=== PATIENT | male | born 1945 | race Caucasian/White ===

== ENCOUNTER → 2017-03-18 | Outpatient (CLI) | payer OTHER ==
[~2017-03-18] MED LIST: ALBUMIN (HUMAN100 M1 IVPB; ALBUTEROL2.5 MG/31 INH; APAP650 PER TUBE; ARANESP 4040 MCG/0.4 SUBQ; ASPIR 8181 MG PO; ATIVAN0.5 MG PER TUBE; ATIVAN1 MG PER TUBE; ATORVASTATIN CA80 MG PER TUBE; BUMETANIDE0.25 MG/1 IV; CALCIUM 500 +1 EAC5 PER TUBE; CALCIUM 600 +1 EAC1 PO; CARAFATE 1 GM TA1 G1 PER TUBE; CEFDINIR300 MG PO; COLACE100 MG PO; COREG3.125 MG PER TUBE; COUMADIN 1MG TAB1 M1 PO; CRESTOR10 MG PO; CYMBALTA60 MG PO; EPOGEN10000 UNIT SUBQ; FENTANYL C100 MCG/2 IV PUSH; FISH OIL 1,001000 M2 PO; FLAGYL500 MG PO; FLOMAX0.4 MG PO; GABAPENTIN 100100 MG PO; HEPARIN 1,1000 UNIT/ IV PUSH; HYDRALAZINE 10M10 MG PO; HYDROCODONE-AP1 EAC6 PER TUBE; HYDROCODONE-AP1 EAC6 PO; IPRAT-ALBUT 0.5-3 ML INH; IRON325 PO; K-PHOS NEUTRAL250 MG PO; KLOR-CON 1010 MEQ PER TUBE; KONSYL6 GM PER TUBE; LANTISEPTIC OI113 GM TOP; LASIX 40 MG TAB40 M2 PO; LEVOTHYROXIN0.088 MG PO; LIPITOR 20 MG T20 M1 PO; LIPITOR40 MG PO; MAGOX 400400 MG PER TUBE; MAGOX 400400 MG PO; MEROPENEM 1 GM V1 GM IVPB; MIDODRINE HCL10 MG PO; MIRALAX17 GM PO; MIRAPEX 0.250.25 M1 PER TUBE; MULTI COMPLETE1 EAC1 PER TUBE; MYCOPHENOLATE PER TUBE; MYFORTIC360 MG PO; NEPRO CARB STE237 ML PER TUBE; NORMAL SALINE FL5 ML PER TUBE; NOVOLIN N100 UNIT/3 SQ; NOVOLIN R100 UNIT/1 SUBQ; OMEPRAZOLE40 MG PER TUBE; OMEPRAZOLE40 MG PO; ONDANSETRON HCL4 M2 IV PUSH; ONDANSETRON HCL4 M2 PO; ONE DAILY1 EAC2 PO; PANTOPRAZOLE SO40 M1 PO; PLAVIX 75 MG TA75 M1 PO; PROBIOTIC1 EAC1 PER TUBE; PROTONIX40 M1 PO; RAPAMUNE0.5 MG PER TUBE; RAPAMUNE0.5 MG PO; RAPAMUNE1 MG PER TUBE; SECURA PROTECTI50 GM TOP; SEROQUEL 25 MG25 M1 PER TUBE; SERTRALINE HCL50 MG PO; SSD CREAM 1% 5050 GM TOP; SYNTHROID88 MCG PER TUBE; THERAGRAN-M PR1 EAC1 PO; TRAMADOL 50 MG50 MG PER TUBE; TRAMADOL 50 MG50 MG PO; TUMS PO; TYLENOL325 MG PO; VANCOMYCIN HCL1 GM IV; VENOFER200 MG/10 IV PUSH; VITAMIN D1000 UNI1 PER TUBE; VITAMIN D2000 UNIT PO; VITAMINC500 PER TUBE; VITAMINC500 PO; VITCB500GO PER TUBE; ZAROXOLYN 5MG TA5 MG PO; ZOLOFT50 MG PER TUBE; ZYVOX600 MG/300 IVPB; [UNRECOGNIZED DRUG - OTHER] INH
[2017-03-18 08:31] VITALS: BP 188/90
[2017-03-18 09:23] LABS: PROTIME 10.5 Seconds (9.3-11.4)
== END | disposition home or self-care (01) ==
LOC: SPEC 03-17 06:32
PROVIDERS: Radiology Diagnostic Radiology
DX: Z49.01 Encounter for fitting and adjustment of extracorporeal dialysis catheter (principal); N18.9 Chronic kidney disease, unspecified; E11.22 Type 2 diabetes mellitus with diabetic chronic kidney disease; E11.621 Type 2 diabetes mellitus with foot ulcer; Z98.890 Other specified postprocedural states; Z87.891 Personal history of nicotine dependence; Z88.0 Allergy status to penicillin; Z88.6 Allergy status to analgesic agent; Z79.899 Other long term (current) drug therapy; Z89.611 Acquired absence of right leg above knee

== ENCOUNTER → 2017-03-24 | Day surgery (SDC) | payer OTHER ==
[~2017-03-24] VITALS: Ht 175.3 cm; Wt 99.8 kg
--- NOTE | ~2017-03-24 | EKG ---
[address] [address] ELECTROCARDIOGRAM REPORT Name: ANJELRIANA Rivera Room #: 150[address] [place] [address]#: [id number] Admission: 03/24/17 Attend Phys: Alfredo Schmitt MD, F Discharge: Date of : 45 Report #: [id number] THIS REPORT FOR: //name// [facility] Test Date: 2017-03-24 Test Time: 07:03:54 Pat Name: RIANA HOBBS Department: Room: [facility] Gender: M Load Dropper: ELIZABETH : 1945 Requested By: Alfredo Schmitt Order Number: [id number] MD: Yousif Perdomo Measurements Intervals Purcell Rate: 94 P: 56 PA: 172 QRS: 142 QRSD: 92 T: QT: 424 QTc: 531 Interpretive Statements Sinus rhythm Low voltage, extremity and precordial leads Probable right ventricular hypertrophy No previous ECG available for comparison Electronically Signed On 03-24-2017 20:18:08 CDT by Yousif Perdomo [email or web address] <ELECTRONICALLY SIGNED> By: Yousif Perdomo MD 03/24/172017 2 2 Yousif Perdomo MD /JOHAN
--- NOTE | ~2017-03-24 | O ---
[facility] [place] [address] OPERATIVE REPORT Name: RIANA HOBBS Room #: 150-1 [facility]..#: [id number] Admission: 03/24/17 Attend Phys: Alfredo Schmitt MD, F Discharge: Date of : 45 Report #: [id number] THIS REPORT FOR: //name// CC: Oliver Schmitt DATE OF SERVICE: 03/24/2017 PREOPERATIVE DIAGNOSES: 1. Respiratory failure. 2. Malnutrition. 3. Dysphagia. 4. History of pulmonary embolism. 5. History of cardiac transplantation. 6. Previous gastrointestinal bleed. 7. Atrial fibrillation. 8. Cardiomyopathy. POSTOPERATIVE DIAGNOSES: 1. Respiratory failure. 2. Malnutrition. 3. Dysphagia. 4. History of pulmonary embolism. 5. History of cardiac transplantation. 6. Previous gastrointestinal bleed. 7. Atrial fibrillation. 8. Cardiomyopathy. PROCEDURE: Placement of size 8 Shiley XLT tracheostomy. ANESTHESIA: General endotracheal anesthesia and local anesthetic. ESTIMATED BLOOD LOSS: 25 mL. SPECIMEN: None. COMPLICATIONS: None appreciated. INDICATIONS FOR PROCEDURE: This is a 72-year-old male patient who was transferred to [facility] from [facility]. Over 2 months ago, the patient had been admitted to [facility] with the right lower extremity diabetic foot wound. 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 While he was at the facility, he developed a GI bleed and was transferred back to [facility] where he underwent a repeat EGD. The patient was then transferred to [facility]. I was involved with his care for placement of the PEG tube. After his PEG tube placement, he required mechanical ventilation as he had been BiPAP dependent. He has been unable to be weaned off the ventilator and presents now for tracheostomy placement. DESCRIPTION OF PROCEDURE IN DETAIL: After the risks, benefits, and expectations of the operation were discussed in detail with the patient's family, informed consent was obtained. The patient was identified in the preoperative holding area. He was given IV antibiotics in line with SCIP metrics. The patient was then taken to the operating room and he was placed in the supine position. SCDs were placed on the patient's lower extremity. Pneumatic compression was initiated. The patient was then given general anesthesia through his indwelling endotracheal tube. The patient was then placed in reverse Trendelenburg position with his neck extended. His neck was prepped and draped in the standard sterile fashion. A time-out was performed to identify the correct patient and procedure. Local anesthetic was infiltrated into the skin and subcutaneous tissue transversely between the strap muscles 1 fingerbreadth above the sternal notch. A sharp #15 blade scalpel was used to make an incision through the skin. Electrocautery was used to dissect through the subcutaneous tissue and through the platysma muscle. The underlying strap muscles were then divided in the midline. Retractors were placed. The thyroid was encountered and cauterized for hemostasis. The trachea was then dissected free with electrocautery. Bleeding points were made hemostatic with electrocautery. The second tracheal ring was identified. The trachea was scored both above and below the second tracheal ring. The cuff was then inflated. After testing the balloon on the tracheostomy, the trachea was incised with a sharp #11 blade scalpel. The anterior portion of the second tracheal ring was then divided and excised. The endotracheal tube cuff was deflated and the tube was slowly withdrawn. When the tube was proximal to the tracheotomy, a trach stitching machine operator was placed and the tracheostomy was placed within the defect. This did not hold the seal. A jagged piece of cartilage was present and this was excised. The endotracheal tube was readvanced and the patient's oxygen saturations were brought back up to a reasonable level in the upper 90s. The cuff was then deflated and the tube pulled back once again. The Shiley XLT size 8 tracheostomy was then placed within the defect and the balloon was inflated with an intact cuff. The inner cannula was placed and the ventilator was connected with end tidal CO2 return. The tracheostomy was then secured to the patient's skin with 2-0 nylon sutures on each wing of the tracheostomy. Surgicel was placed within the subcutaneous space. A tracheostomy strap was then placed to further secure the tube. The patient tolerated the procedure well. He was [address] [address] OPERATIVE REPORT Name: RIANA HOBBS Room #: 150-1 [facility] Kindra.R.#: [id number] Admission: 03/24/17 Attend Phys: Alfredo Schmitt MD, F Discharge: Date of : 45 Report #: [id number] awakened and taken to the recovery room in stable condition with no apparent intraoperative complications. <ELECTRONICALLY SIGNED> By: Alfredo Schmitt MD, FACS 03/25/17 [id number] [id number] Alfredo Schmitt MD, FACS /nt
[2017-03-24 07:32] LABS: CALCIUM 8.6 mg/dL (8.5-10.1); CREATININE 2.4 mg/dL (0.7-1.3); POTASSIUM 3.7 mmol/L (3.5-5.1)
[2017-03-24 07:38] LABS: ALBUMIN 2.5 g/dL (3.4-5.0); TOTAL BILIRUBIN 0.3 mg/dL (<0.1-1.0); TOTAL PROTEIN 6.8 g/dL (6.4-8.2)
[2017-03-24 11:07] VITALS: BP 88/33
== END | disposition home or self-care (01) ==
LOC: TBA 05:11 → OR 05:11
PROVIDERS: Surgery
DX: J96.90 Respiratory failure, unspecified, unspecified whether with hypoxia or hypercapnia (principal); E46 Unspecified protein-calorie malnutrition; I48.91 Unspecified atrial fibrillation; I42.9 Cardiomyopathy, unspecified; F32.9 Major depressive disorder, single episode, unspecified; F41.9 Anxiety disorder, unspecified; G45.9 Transient cerebral ischemic attack, unspecified; D64.9 Anemia, unspecified; I13.2 Hypertensive heart and chronic kidney disease with heart failure and with stage 5 chronic kidney disease, or end stage renal disease; N18.6 End stage renal disease; I50.9 Heart failure, unspecified; Z99.2 Dependence on renal dialysis; E03.9 Hypothyroidism, unspecified; Z79.4 Long term (current) use of insulin; Z98.890 Other specified postprocedural states; Z90.49 Acquired absence of other specified parts of digestive tract; Z93.1 Gastrostomy status
CPT/HCPCS: 50010; 50101; 50386; 50403; 50550; 56524; 56525; 56639; 62110; 62900; 70005